=== PATIENT | male | born 1965 | race Two or more races ===

== ENCOUNTER 2019-04-30 16:00 | Emergency (ER) | payer MEDICAID ==
[~2019-04-30] VITALS: Ht 172.7 cm; Wt 133.4 kg
[2019-04-30 17:22] VITALS: BP 132/72
[2019-04-30] MEDS ORDERED: BENZOCAINE (DENTAL) 20 % SPRAY 60ML MT ONE ×2 (17:46→18:00)
[2019-04-30] MEDS ORDERED: cefTRIAXone SOD 1,000 MG VL IM ONE (18:00)
== END 2019-04-30 18:19 | disposition home or self-care (01) ==
LOC: ER 16:08
DX: K04.7 Periapical abscess without sinus (principal); E11.9 Type 2 diabetes mellitus without complications; I10 Essential (primary) hypertension; M54.9 Dorsalgia, unspecified; G89.29 Other chronic pain
CPT/HCPCS: 41800; 96372; 99283; J0696